=== PATIENT | female | born 1955 | race Caucasian/White ===

== ENCOUNTER → 2016-09-17 | Outpatient (CLI) | payer MEDICARE ==
--- NOTE | 2016-09-17 13:47 | US ---
EXAMINATION TYPE: US venous doppler duplex LE LT DATE OF EXAM: 09/17/2016 1:36 PM COMPARISON: NONE CLINICAL HISTORY: left lower leg skin redness and swelling x 6 days, prior PE per patient. SIDE PERFORMED: left VESSELS IMAGED: Common Femoral Vein Deep Femoral Vein Greater Saphenous Vein * Femoral Vein Popliteal Vein Small Saphenous Vein * Proximal Calf Veins (* superficial vessels) There is normal compressibility and spontaneous flow. IMPRESSION: 1. No evidence of DVT as visualized. 2. Incidental note made of lymph nodes within the left inguinal canal. Correlate for adenopathy. Larg est has a short axis measurement of 1.2 cm.
== END | disposition home or self-care (01) ==
LOC: RADUSWWP 12:46
PROVIDERS: ATTEND Family Medicine
DX: I82.402 Acute embolism and thrombosis of unspecified deep veins of left lower extremity (principal)

== ENCOUNTER → 2017-08-05 | Day surgery (SDC) | payer MEDICARE ==
[2017-08-05 07:28] VITALS: RESP 16; BMI 36.6
[2017-08-05 08:45] VITALS: BP 110/67; PULSE 74; TEMP 97.7
--- NOTE | 2017-08-05 09:06 | USB ---
EXAMINATION TYPE: US biopsy breast VAD LT, Postbiopsy diagnostic mammo LT wo CAD DATE OF EXAM: 08/05/2017 CLINICAL HISTORY: 62-year-old female abnormal screening referred for ultrasound- guided left breast biopsy. TECHNIQUE: Ultrasound guided core biopsy of the left breast. COMPARISON: 07/15/2017, 07/12/2017 FINDINGS: The procedure of ultrasound guided core biopsy was explained to the patient. Benefits, alternatives, and risks were discussed. An informed consent was then obtained. Ultrasound was used to localize the 5 mm hypoechoic lesion. Some posterior through transmission is present. The patient was placed in supine positioning for imaging and for the procedure. The overlying skin was prepped and draped in usual sterile fashion. Lidocaine was used as anesthetic into the skin and subcutaneous tissue up to area of concern in the left breast. Under ultrasound guidance, a 13-gauge vacuum assisted Mammotome Elite biopsy gun device was used to obtain 3 core samples. Following this, a biopsy clip was left in lesion. Post biopsy mammogram shows ribbon clip at the 10:00 position at the site of the mammographic abnormality. The patient tolerated the procedure well without any immediate complication. The patient was kept in the radiology department for short stay after the procedure and then discharged home in stable condition. IMPRESSION: Successful, uncomplicated ultrasound guided core biopsy of area of concern in the 10:00 left breast. A complicated cyst is suspected but mucinous/medullary neoplasm should be excluded. Full pathology results to follow. Pathology Results: High Risk BREAST, LEFT, 10:00, BIOPSY: FRAGMENTS OF INTRADUCTAL PAPILLOMA, CANNOT EXCLUDE FOCAL ATYPIA. FIBROCYSTIC CHANGES INCLUDING CYSTS, APOCRINE METAPLASIA AND FIBROSIS. Recommendation Surgical consult of the left breast. EMMANUEL
== END ==
LOC: RADMAMWWP 06:56
PROVIDERS: ATTEND Surgery
DX: D24.2 Benign neoplasm of left breast (principal); N60.82 Other benign mammary dysplasias of left breast; N60.32 Fibrosclerosis of left breast
CPT/HCPCS: 88305; 19083; G0206; A4648; J2001

== ENCOUNTER 2018-04-04 09:14 | Day surgery (SDC) | payer MEDICARE ==
[~2018-04-04 09:14] MED LIST: LACTATED RINGERS 1,000 ML IV SCH; LIDOCAINE 1% 20 ML VIAL (10MG/ML) FOR IV START INTRADERMA PRN
[2018-04-04 09:30] VITALS: TEMP 98
[2018-04-04] MEDS ORDERED: LACTATED RINGERS 1,000 ML IV ONE (09:30)
[2018-04-04] MEDS ORDERED: PROPOFOL 10 MG/ML 20 ML VIAL IV ONE (10:06)
--- NOTE | 2018-04-04 10:10 | P.GSHP ---
History of Present Illness H&P Date: 04/04/18 Chief Complaint: History of colon polyps Cyst 63-year-old female who presents today for colonoscopy. Patient history of colon polyps. She's had a previous colon resection several years ago. Past Medical History Past Medical History: Coronary Artery Disease (CAD), Cancer, Hypertension, Osteoarthritis (OA), Pulmonary Embolus (PE), Thyroid Disorder Additional Past Medical History / Comment(s): skin cancer History of Any Multi-Drug Resistant Organisms: None Reported Past Surgical History: Bowel Resection, Cholecystectomy, Heart Catheterization, Hernia Repair, Tonsillectomy Additional Past Surgical History / Comment(s): skin cancer surgery. PRE- CANCEROUS COLON POLYPS.Benign mole removal, Past Anesthesia/Blood Transfusion Reactions: No Reported Reaction Past Psychological History: Anxiety, Bipolar, Depression Smoking Status: Former smoker Past Alcohol Use History: None Reported Additional Past Alcohol Use History / Comment(s): Quit smoking 2007, 2PPD Past Drug Use History: Marijuana Additional Drug Use History / Comment(s): marijuana use many years ago Medications and Allergies Home Medications Medication Instructions Recorded Confirmed Type Aspirin 325 mg PO HS 07/28/17 03/29/18 History Butalb/APAP/Caff 50-325-40Mg 1 each PO DAILY PRN 07/28/17 03/29/18 History [Fioricet 50-325-40] Cholecalciferol (Vitamin D3) 2,000 unit PO QAM 07/28/17 03/29/18 History [Vitamin D3] Cholestyramine/Aspartame 1 each PO HS 07/28/17 03/29/18 History [Cholestyramine Light Packet] Diazepam [Valium] 2 each PO HS PRN 07/28/17 03/29/18 History Dicyclomine [Bentyl] 20 mg PO DAILY PRN 07/28/17 03/29/18 History Isosorbide Mononitrate [Monoket] 10 each PO HS 07/28/17 03/29/18 History Levothyroxine Sodium [Synthroid] 175 mcg PO QAM 07/28/17 03/29/18 History [place] Carbonate 300 mg PO BID 07/28/17 03/29/18 History NIFEdipine [NIFEdipine ER] 30 mg PO QAM 07/28/17 03/29/18 History Nitroglycerin Sl Tabs [Nitrostat] 1 each SUBLINGUAL DAILY PRN 07/28/17 03/29/18 History Venlafaxine HCl ER [Effexor Xr] 75 mg PO QAM 07/28/17 03/29/18 History buPROPion XL [Wellbutrin XL] 300 mg PO QAM 07/28/17 03/29/18 History buPROPion XL [Wellbutrin Xl] 150 mg PO HS 07/29/17 03/29/18 History Topiramate [Topamax] 100 mg PO QAM 03/29/18 03/29/18 History Topiramate [Topamax] 200 mg PO QAM 03/29/18 03/29/18 History Allergies Allergy/AdvReac Type Severity Reaction Status Date / Time No Known Allergies Allergy Verified 03/29/18 13:21 Surgical - Exam Vital Signs Temp Pulse Resp BP Pulse Ox 98.0 F 80 18 140/84 96 04/04/18 09:29 04/04/18 09:29 04/04/18 09:29 04/04/18 09:29 04/04/18 09:29 - General well developed, no distress - Eyes PERRL - ENT normal pinna - Neck no masses - Respiratory normal expansion - Cardiovascular Rhythm: regular - Abdomen Abdomen: non tender Assessment and Plan Assessment: History of colon polyps. We'll perform colonoscopy.
--- NOTE | 2018-04-04 10:31 | P.OP ---
Date of Procedure: 04/04/18 Preoperative Diagnosis: History of colon polyps Postoperative Diagnosis: Transverse colon polyp Procedure(s) Performed: Colonoscopy Anesthesia: MAC Surgeon: Joel Bhatt Pathology: other (Gastric colon polyp) Condition: stable Disposition: PACU Description of Procedure: The patient's placed on the endoscopy table in the lateral position. She received IV sedation. Digital rectal exam was performed which revealed no abnormalities. The flexible colonoscope then placed patient anus passed rotator entire colon. The ileocolonic anastomosis visualized. The remaining ascending colon appeared normal. And the transverse colon there was a small sessile polyp this removed with the snare. Scope was withdrawn remainder of the transverse colon and descending colon appeared normal. There was a few scattered diverticula. The scope was then brought back the rectum this appeared normal. Scope was withdrawn for patient.
[2018-04-04 11:08] VITALS: BP 106/66; PULSE 75; RESP 16
== END 2018-04-04 11:34 | disposition home or self-care (01) ==
LOC: ORWHC2ENDO 09:14
PROVIDERS: ATTEND Surgery
DX: K63.5 Polyp of colon (principal); K57.30 Diverticulosis of large intestine without perforation or abscess without bleeding; I10 Essential (primary) hypertension; I25.10 Atherosclerotic heart disease of native coronary artery without angina pectoris; K44.9 Diaphragmatic hernia without obstruction or gangrene; M19.90 Unspecified osteoarthritis, unspecified site; Z79.82 Long term (current) use of aspirin; Z85.038 Personal history of other malignant neoplasm of large intestine; Z86.010 Personal history of colon polyps; Z86.711 Personal history of pulmonary embolism; Z87.891 Personal history of nicotine dependence; Z85.828 Personal history of other malignant neoplasm of skin; F41.9 Anxiety disorder, unspecified; F31.9 Bipolar disorder, unspecified; Z79.899 Other long term (current) drug therapy; Z90.49 Acquired absence of other specified parts of digestive tract; Z98.0 Intestinal bypass and anastomosis status
CPT/HCPCS: 88305; 45385; J2704

== ENCOUNTER → 2018-08-16 | Outpatient (CLI) | payer MEDICARE ==
--- NOTE | 2018-08-17 14:04 | MM ---
Reason for exam: screening (asymptomatic). Last mammogram was performed 1 year ago. History: Patient is postmenopausal, has history of high-risk lesion on a previous biopsy at age 62, and history of other cancer. Excisional biopsy of the left breast, September 2017. High risk US biopsy breast VAD LT of the left breast, August 05, 2017. Benign left mammotome panel of the left breast, April 17, 2012. Physical Findings: A clinical breast exam by your physician is recommended on an annual basis and results should be correlated with mammographic findings. MG 3D Screening Mammo W/Cad Bilateral CC and MLO view(s) were taken. Prior study comparison: August 05, 2017, left breast MG diagnostic mammo LT wo CAD. July 12, 2017, bilateral MG 3d screening mammo w/cad. There are scattered fibroglandular densities. No suspicious abnormality. No significant changes when compared with prior studies. ASSESSMENT: Negative, BI-RAD 1 RECOMMENDATION: Routine screening mammogram of both breasts in 1 year.
== END | disposition home or self-care (01) ==
LOC: RADMAMWWP 16:04
PROVIDERS: ATTEND Family Medicine
DX: Z12.31 Encounter for screening mammogram for malignant neoplasm of breast (principal)
CPT/HCPCS: 77063; 77067

== ENCOUNTER → 2019-10-16 | Outpatient (CLI) | payer MEDICARE ==
--- NOTE | 2019-10-17 11:52 | MM ---
Reason for exam: screening (asymptomatic). Last mammogram was performed 1 year and 2 months ago. History: Patient is postmenopausal, has history of high-risk lesion on a previous biopsy at age 62, and history of other cancer. Excisional biopsy of the left breast, September 2017. High risk US biopsy breast VAD LT of the left breast, August 05, 2017. Benign left mammotome panel of the left breast, April 17, 2012. Took hormonal contraceptives for 4 years. Physical Findings: A clinical breast exam by your physician is recommended on an annual basis and results should be correlated with mammographic findings. MG 3D Screening Mammo W/Cad Bilateral CC and MLO view(s) were taken. Prior study comparison: August 16, 2018, bilateral MG 3d screening mammo w/cad. August 05, 2017, left breast MG diagnostic mammo LT wo CAD. There are scattered fibroglandular densities. There is no discrete abnormality. Left biopsy marker noted. No significant changes when compared with prior studies. ASSESSMENT: Negative, BI-RAD 1 RECOMMENDATION: Routine screening mammogram of both breasts in 1 year.
== END | disposition home or self-care (01) ==
LOC: RADMAMWWP 10:46
PROVIDERS: ATTEND Family Medicine
DX: Z12.31 Encounter for screening mammogram for malignant neoplasm of breast (principal)
CPT/HCPCS: 77063; 77067

== ENCOUNTER → 2020-10-29 | Outpatient (CLI) | payer MEDICARE ==
--- NOTE | 2020-10-30 12:07 | MM ---
Reason for exam: screening (asymptomatic). Last mammogram was performed 1 year ago. History: Patient is postmenopausal, has history of high-risk lesion on a previous biopsy at age 62, and history of other cancer. Excisional biopsy of the left breast, September 2017. High risk US biopsy breast VAD LT of the left breast, August 05, 2017. Benign left mammotome panel of the left breast, April 17, 2012. Took hormonal contraceptives for 4 years. Physical Findings: A clinical breast exam by your physician is recommended on an annual basis and results should be correlated with mammographic findings. MG 3D Screening Mammo W/Cad Bilateral CC, MLO, and XCCL view(s) were taken. Prior study comparison: October 16, 2019, bilateral MG 3d screening mammo w/cad. August 16, 2018, bilateral MG 3d screening mammo w/cad. There are scattered fibroglandular densities. There is no discrete abnormality. No significant changes when compared with prior studies. ASSESSMENT: Negative, BI-RAD 1 RECOMMENDATION: Routine screening mammogram of both breasts in 1 year.
== END | disposition home or self-care (01) ==
LOC: RADMAMWWP 11:47
PROVIDERS: ATTEND Family Medicine
DX: Z12.31 Encounter for screening mammogram for malignant neoplasm of breast (principal)
CPT/HCPCS: 77063; 77067

== ENCOUNTER 2021-11-19 09:10 | Day surgery (SDC) | payer MEDICARE ==
[2021-11-17 14:43] VITALS: BMI 32.9
[~2021-11-19 09:10] MED LIST changes: -LIDOCAINE 1% 20 ML VIAL (10MG/ML) FOR IV START INTRADERMA PRN
[2021-11-19 09:50] VITALS: RESP 18; TEMP 98.7
[2021-11-19] MEDS ORDERED: LIDOCAINE 1% (10MG/ML) FOR IV START INTRADERMA ONE (09:56)
[2021-11-19] MEDS ORDERED: PROPOFOL 10 MG/ML 20 ML VIAL IV ONE (10:24)
--- NOTE | 2021-11-19 10:26 | P.GSHP ---
History of Present Illness H&P Date: 11/19/21 Chief Complaint: History of colon polyp This is a 66-year-old female presents today for colonoscopy. Patient's previous history of colon polyps Past Medical History Past Medical History: Coronary Artery Disease (CAD), Cancer, Hypertension, Osteoarthritis (OA), Pulmonary Embolus (PE), Thyroid Disorder Additional Past Medical History / Comment(s): skin cancer History of Any Multi-Drug Resistant Organisms: None Reported Past Surgical History: Bowel Resection, Cholecystectomy, Heart Catheterization, Hernia Repair, Tonsillectomy, Tubal Ligation Additional Past Surgical History / Comment(s): skin cancer surgery. PRE- CANCEROUS COLON POLYPS. Past Anesthesia/Blood Transfusion Reactions: No Reported Reaction Past Psychological History: Anxiety, Bipolar, Depression Smoking Status: Former smoker Past Alcohol Use History: None Reported Past Drug Use History: None Reported Medications and Allergies Home Medications Medication Instructions Recorded Confirmed Type Aspirin 325 mg PO 07/28/17 11/19/21 History Cholecalciferol (Vitamin D3) 2,000 unit PO QA 07/28/17 11/19/21 History [Vitamin D3] Cholestyramine/Aspartame 1 each PO 07/28/17 11/19/21 History [Cholestyramine Light Packet] Levothyroxine Sodium [Synthroid] 175 mcg PO QA 07/28/17 11/19/21 History [place] Carbonate 300 mg PO 07/28/17 11/19/21 History NIFEdipine [NIFEdipine ER] 30 mg PO QA 07/28/17 11/19/21 History Venlafaxine HCl ER [Effexor Xr] 75 mg PO QA 07/28/17 11/19/21 History buPROPion XL [Wellbutrin XL] 300 mg PO [facility] 07/28/17 11/19/21 History Riboflavin (Vitamin B2) [Vitamin 50 mg PO Q7D 11/17/21 11/19/21 History B-2] Allergies Allergy/AdvReac Type Severity Reaction Status Date / Time No Known Allergies Allergy Verified 11/19/21 09:50 Surgical - Exam Vital Signs Temp Pulse Resp BP Pulse Ox 98.7 F 86 18 157/85 96 11/19/21 09:48 11/19/21 09:48 11/19/21 09:48 11/19/21 09:48 11/19/21 09:48 - General well developed, well nourished, no distress - Eyes PERRL - ENT normal pinna - Neck no masses - Respiratory normal expansion - Cardiovascular Rhythm: regular - Abdomen Abdomen: soft, non tender Assessment and Plan Assessment: History of colon polyps. We will perform colonoscopy.
--- NOTE | 2021-11-19 10:44 | P.OP ---
Date of Procedure: 11/19/21 Preoperative Diagnosis: History of colon polyp Postoperative Diagnosis: Transverse colon polyp Procedure(s) Performed: Colonoscopy Anesthesia: MAC Surgeon: Joel Bhatt Pathology: other (Transverse colon polyp) Condition: stable Disposition: PACU Description of Procedure: The patient's placed on the endoscopy table in the lateral position. She received IV sedation. Digital rectal exam was performed which revealed a few hemorrhoids. The flexible colonoscope was then placed patient anus and then p assed with colon. As the colonoscope approach the hepatic flexure. The patient started having dry heaves and retching. She was unable to contain insufflation the colon due to this. At this point the scope was withdrawn. In the transverse colon there was a small polyp seen. This is removed with cold forcep. The remainder of the transverse colon descending colon and sigmoid colon appeared normal. Scope was brought back the rectum and this appeared normal. Scope was withdrawn for patient.
[2021-11-19 11:11] VITALS: BP 151/83; PULSE 79
== END 2021-11-19 11:39 | disposition home or self-care (01) ==
LOC: ORWHC2ENDO 09:10
PROVIDERS: ATTEND Surgery
DX: K63.5 Polyp of colon (principal); Z86.010 Personal history of colon polyps; I25.10 Atherosclerotic heart disease of native coronary artery without angina pectoris; M19.90 Unspecified osteoarthritis, unspecified site; Z86.718 Personal history of other venous thrombosis and embolism; E07.9 Disorder of thyroid, unspecified; Z85.828 Personal history of other malignant neoplasm of skin; Z90.49 Acquired absence of other specified parts of digestive tract; Z98.51 Tubal ligation status; F41.9 Anxiety disorder, unspecified; F31.9 Bipolar disorder, unspecified; Z87.891 Personal history of nicotine dependence; Z79.82 Long term (current) use of aspirin; Z79.890 Hormone replacement therapy; Z79.899 Other long term (current) drug therapy
CPT/HCPCS: 88305; 45380; J2704

== ENCOUNTER → 2022-03-26 | Outpatient (CLI) | payer MEDICARE ==
--- NOTE | 2022-03-26 19:41 | MR ---
EXAMINATION TYPE: MR brain wo/w con DATE OF EXAM: 03/26/2022 7:29 PM COMPARISON: NONE HISTORY: Headaches, mood changes CONTRAST: Patient received 8.5 mL intravenous Gadavist gadolinium contrast. Multiplanar and multispin-echo imaging of the brain was performed . Pre and post contrast enhanced i mages are obtained. The ventricles, basal cisterns and sulci overlying the cerebral convexities are mildly enlarged. There is evidence of mild to moderate periventricular white matter ischemic demyelination. Remote deep white matter insults are also noted. No acute edema is seen on diffusion weighted imaging. There is no evidence for midline shift or mass effect. Acute intracranial hemorrhage or extra-axial collection is not evident. No enhancing lesions are seen. The paranasal sinuses and mastoid air cells are well-aerated. IMPRESSION: Age-related atrophic and chronic small vessel ischemic change. No acute intracranial process at this time. No enhancing lesions are seen.
== END | disposition home or self-care (01) ==
LOC: RADMRIMAIN 18:12
PROVIDERS: ATTEND Family Medicine
DX: G31.9 Degenerative disease of nervous system, unspecified (principal); R44.1 Visual hallucinations; I67.82 Cerebral ischemia
CPT/HCPCS: 70553; A9585

== ENCOUNTER → 2022-07-08 | Outpatient (CLI) | payer MEDICARE ==
--- NOTE | 2022-07-08 16:10 | P.SLEEP ---
History of Present Illness DATE: [] CONSULTATION/NEW PATIENT EVALUATION HISTORY OF PRESENT ILLNESS/SLEEP-WAKE EVALUATION: 67year old lady had been evaluated in the sleep center for possible obstructive sleep apnea hypopnea syndrome and significant excessive daytime sleepiness. SLEEP SCHEDULE: Usually sleep schedule on weekdays from 1011 PM until 4 AM. 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 FALLING ASLEEP: Patient has problems with the falling asleep, although no TV in bedroom. DURING SLEEP: Patient snores and wakes up from sleep 3 times during the night with nocturia. No history of hypnogogical hallucinations, sleep paralysis, or cataplexy. DURING THE DAY/WAKE STATE: In the morning patient wake up tired, has difficulties to pay attention, falling asleep during the day, has problems with memory, concentration, irritability, depression and anxiety. [place] sleepiness scale is significantly increased to 13. Patient may take up to 2 naps during the day. PAST MEDICAL HISTORY: Hypertension, hypothyroidism, headaches, bipolar, depression, COPD. PAST SURGICAL HISTORY: Hiatal hernia repair, skin cancer treatment, tonsillectomy, small part of colon resection for precancerous condition. MEDICATIONS: Levothyroxine 150 g once a day, nifedipine extended release 30 mg once a day, venlafaxine 75 mg twice a day, bupropion 150 mg once a day, lithium 300 mg 3 times a day, aspirin 81 mg once a day, cholestyramine. SOCIAL HISTORY: Positive history of smoking for more than 30 pack years, quit in 2007, alcohol consumption none. FAMILY HISTORY: Stroke, diabetes. REVIEW OF SYSTEMS: Snoring, multiple awakenings from sleep, sleepiness during the day. No fevers. No double vision. No recent chest pain. No shortness of breath. No abdominal pain. No bleeding episodes. No blood in urine. No seizure episodes. PHYSICAL EXAMINATION: GENERAL: A pleasant patient without any distress. VITAL SIGNS: BP 140/76 , HR 74 , RR 16 , weight 204 pounds, height 5 foot 2 inches, body mass index 37.3 . HEENT: PERRLA, EOMI. Evaluation of oropharynx showed tongue protrudes midline, low position of soft palate Mallampati 4. NECK: Supple. No JVD. Thyroid is not palpable. 16 inches in circumference. LUNGS: Clear to percussion and to auscultation. Good air exchange. No wheezing or rhonchi. HEART: S1, S2 regular. No murmurs, gallops or rubs. ABDOMEN: Soft and nontender. Bowel sounds are present. No organomegaly appreciated. EXTREMITIES: No clubbing or cyanosis. [employer] SCHEDULER: Awake, alert, and oriented x3. Cranial nerves 2 to 7 intact. There is no fasciculation or atrophy noted. No focal deficits observed. ASSESSMENT: 1. Snoring, multiple awakenings from sleep, extremely low position of soft palate Mallampati 4, white neck 16 inches in circumference, significant excessive daytime sleepiness [place] Sleepiness Scale increased to 13. Obstructive sleep apnea hypopnea syndrome. 2. Obesity body mass index 37.3. 3 hypertension. 4. Hypothyroidism. 5 headaches. 6. Bipolar. 7. Depression. 8. COPD. 9. Status post hiatal hernia repair. 10. Status post the surgical treatment for skin cancer of the face. 11. Status small post small part of colon resection for precancerous condition. 12 status post tonsillectomy. 13[]. PLAN: 1. Polysomnography for evaluation of patient's breathing during sleep with the multiple sleep latency test if polysomnogram will not show any abnormalities of respiration. 2. CPAP/BiPAP titration if sleep study confirms obstructive sleep apnea- hypopnea syndrome. 3. Preferable position during sleep on the side. 4. No driving if patient feels any sleepiness. Patient is aware of civil and criminal liability for unsafe driving. 5. Sleep hygiene with regular sleep time for at least 7.5-8 hours. 6. Watching and losing weight. Thank you very much for referring this patient for consultation. Sincerely, Yobani Nogueira MD, PhD, FAASM. Diplomat of [place] [employer], Sleep Medicine Board by [place] [employer] [place] [employer] [facility] [place] Past Medical History Past Medical History: Coronary Artery Disease (CAD), Cancer, Hypertension, Osteoarthritis (OA), Pulmonary Embolus (PE), Thyroid Disorder Additional Past Medical History / Comment(s): skin cancer History of Any Multi-Drug Resistant Organisms: None Reported Past Surgical History: Bowel Resection, Cholecystectomy, Heart Catheterization, Hernia Repair, Tonsillectomy, Tubal Ligation Additional Past Surgical History / Comment(s): skin cancer surgery. PRE- CANCEROUS COLON POLYPS. Past Anesthesia/Blood Transfusion Reactions: No Reported Reaction Past Psychological History: Anxiety, Bipolar, Depression Smoking Status: Former smoker Past Alcohol Use History: None Reported Past Drug Use History: None Reported Medications and Allergies Home Medications Medication Instructions Recorded Confirmed Type Aspirin 325 mg PO HS 07/28/17 11/19/21 History Cholecalciferol (Vitamin D3) 2,000 unit PO QAM 07/28/17 11/19/21 History [Vitamin D3] Cholestyramine/Aspartame 1 each PO HS 07/28/17 11/19/21 History [Cholestyramine Light Packet] Levothyroxine Sodium [Synthroid] 175 mcg PO QAM 07/28/17 11/19/21 History [place] Carbonate 300 mg PO HS 07/28/17 11/19/21 History NIFEdipine [NIFEdipine ER] 30 mg PO QAM 07/28/17 11/19/21 History Venlafaxine HCl ER [Effexor Xr] 75 mg PO QAM 07/28/17 11/19/21 History buPROPion XL [Wellbutrin XL] 300 mg PO QAM 07/28/17 11/19/21 History Riboflavin (Vitamin B2) [Vitamin 50 mg PO Q7D 11/17/21 11/19/21 History B-2] Allergies Allergy/AdvReac Type Severity Reaction Status Date / Time No Known Allergies Allergy Verified 11/19/21 09:50 Sleep Note - Sleep Note Sleep Note: Temperature: Pulse Rate: Respiratory Rate: Blood Pressure: SpO2: Height: Weight: BMI: Neck Circumference:
== END ==
LOC: SLEEP 14:25
PROVIDERS: ATTEND Internal Medicine
DX: G47.33 Obstructive sleep apnea (adult) (pediatric) (principal); E66.9 Obesity, unspecified; Z68.37 Body mass index [BMI] 37.0-37.9, adult; I10 Essential (primary) hypertension; E03.9 Hypothyroidism, unspecified; R51.9 Headache, unspecified; J44.9 Chronic obstructive pulmonary disease, unspecified; F32.A Depression, unspecified; Z98.890 Other specified postprocedural states; Z87.891 Personal history of nicotine dependence; Z90.89 Acquired absence of other organs
CPT/HCPCS: 99211

== ENCOUNTER → 2022-09-23 | Outpatient (CLI) | payer MEDICARE ==
--- NOTE | 2022-09-24 07:32 | NM ---
EXAMINATION TYPE: NM parathyroid w/spect DATE OF EXAM: 09/23/2022 COMPARISON: NONE HISTORY: G43.109 migraine w/aura , shakiness, achiness, decreased energy levels, increased irritabili ty. TECHNIQUE: Following administration of 24.3 mCi Tc99m Sestamibi. Anterior projection images of the neck and ches t were obtained 10 minutes and 3 hours post injection. SPECT images of the neck and chest were obtai tere and reconstructed in three axes. FINDINGS: Thyroid tracer washout: Delayed images demonstrate near-complete tracer washout from the thyroid. Parathyroid uptake: None. The two-hour delayed images do not demonstrate any focal abnormal persisten t uptake in the region of the parathyroid glands to suggest parathyroid adenoma. Normal uptake: There is physiological tracer uptake in the myocardium, liver, salivary glands, and th yroid gland. IMPRESSION: Normal parathyroid imaging study. No evidence for mediastinal uptake to suggest mediastinal parathyro id adenoma
== END | disposition home or self-care (01) ==
LOC: RADNMMAIN 10:42
PROVIDERS: ATTEND Family Medicine
DX: G43.109 Migraine with aura, not intractable, without status migrainosus (principal); E83.52 Hypercalcemia; F03.90 Unspecified dementia, unspecified severity, without behavioral disturbance, psychotic disturbance, mood disturbance, and anxiety
CPT/HCPCS: 78071; A9500

== ENCOUNTER → 2022-10-06 | Outpatient (CLI) | payer MEDICARE ==
[~2022-10-06] MED LIST changes: +IODINE/POTASSIUM IODIDE 14 ML BOTTLE ONE; -LACTATED RINGERS 1,000 ML IV SCH
--- NOTE | 2022-10-06 16:08 | NM ---
EXAMINATION TYPE: NM DatScan Brain SPECT DATE OF EXAM: 10/06/2022 COMPARISON: NONE HISTORY: Dementia TECHNIQUE: 10 drops of Lugol's solution was administered 1 hour prior to injection as a thyroid bloc jeane agent. After the administration of 4.5 mCi I-123 Ioflupane DaTscan. Images obtained [address] injection. SPECT images of the brain were acquired with axial and coronal reconstructions. FINDINGS: The uptake of radiotracer within the patient's caudate nuclei and putamina is symmetric and crescent- shaped. IMPRESSION: There is no scintigraphic evidence of a neurodegenerative disorder (Parkinson's disease, Multisystem atrophy or Progressive supranuclear palsy), as there is symmetric uptake of I-123 Ioflupan (DaTscan) within the caudate nuclei and putamina.
== END | disposition home or self-care (01) ==
LOC: RADNMMAIN 10:49
PROVIDERS: ATTEND Family Medicine
DX: G20 Parkinson's disease (principal); F03.90 Unspecified dementia, unspecified severity, without behavioral disturbance, psychotic disturbance, mood disturbance, and anxiety; R44.3 Hallucinations, unspecified
CPT/HCPCS: 78803; A9584

== ENCOUNTER → 2023-03-02 | Outpatient (CLI) | payer MEDICARE ==
--- NOTE | 2023-03-02 12:18 | P.PN ---
Subjective DATE: 03/02/2023 FOLLOW UP VISIT. Patient with obstructive sleep apnea hypopnea syndrome return to sleep center for follow-up visit. Recently patient had sleep study which documented obstructive sleep apnea hypopnea syndrome. Patient was initiated on PAP therapy and today is first visit after treatment was started. I discuss results of sleep studies with patient and family in details. Patient was able to use PAP equipment every night for the whole night. Patient still feels sleepiness during the day. The patient does not have significant problems with the mask, PAP pressure and humidification. [place] sleepiness scale is 14. I checked information from PAP unit. PAP unit pressure 5-9, average 8.7 cm H2O. Usage is 100% and 77 % for more then 4 hours, average 5 hours per night. Leak is 5.0 l/m, which is in acceptable range. Apnea Hypopnea Index is 0.5, which is normal. During polysomnogram extremely severe periodic limb movements have been documented 108.1 per hour with 6.9 micro-arousals per hour, which also could be the reason for sleepiness during the day. MEDICATIONS:1. Levothyroxine 150 g once a day 2. Nifedipine 30 mg once a day 3. Bupropion 150 mg once a day 4. [place] 300 mg 3 times a day 5. Aspirin 81 mg once a day 6. [] 7. [] 8. [] During physical exam: GENERAL: A pleasant patient without any distress. VITAL SIGNS: BP 133/76, HR 70, RR 12, weight 210.8, temperature 97.6, oxygen saturation at room air 97%. HEENT: PERRLA, EOMI.low position of soft palate, Mallapati 4 . NECK: Supple. No JVD. LUNGS: Clear to percussion and to auscultation. Good air exchange. No wheezing or rhonchi. HEART: S1, S2 regular. ABDOMEN: Soft and nontender.[] EXTREMITIES: No clubbing or cyanosis. NAIL FEEDER: Awake, alert, and oriented x3. No focal deficit. Impressions: 1. Obstructive sleep apnea-hypopnea syndrome. Patient demonstrated great compliance with treatment, benefiting from treatment. 2. Severe periodic limb movements 108.1 per hour with 6.9 micro-arousals per hour, which could be the reason for sleepiness during the day. 3. Obesity. 4. Hypertension. 5. Hypothyroidism. 6. Bipolar. 7. Depression. 8. History of COPD. 9. History of headaches. Plan: 1. Continue using PAP equipment every night for the whole night. 2. We will try smallest dose of dopaminergic agonists for periodic limb movements, 3. PAP unit should stay lower then position of the head. 4. Advised patient to remove all remaining water from humidifier canister daily and make it dry after each usage. Refill canister with fresh distilled water before each usage. 5. Sleep hygiene with regular time in bed for at least 8 hours. 6. Precautions related to driving. No driving if feel any sleepiness. 7. I will maintain prescription for PAP supplies including mask, tube, filters. 8. Follow up visit in 3-4 months or earlier if patient has any problems. 9. Watching and losing weight. Thank you very much for allowing me to participate in the management of your patient. Yobani Nogueira MD, PhD, FAASM. Diplomat of [place] [employer], Sleep Medicine Board by [place] [employer] Manager [employer] [facility] [place]
== END ==
LOC: 3 N SLEEP 11:40
PROVIDERS: ATTEND Internal Medicine
DX: G47.33 Obstructive sleep apnea (adult) (pediatric) (principal); E66.9 Obesity, unspecified; I10 Essential (primary) hypertension; E03.9 Hypothyroidism, unspecified; F31.9 Bipolar disorder, unspecified; G47.61 Periodic limb movement disorder; J44.9 Chronic obstructive pulmonary disease, unspecified; R51.9 Headache, unspecified; Z99.89 Dependence on other enabling machines and devices; Z79.890 Hormone replacement therapy; Z87.891 Personal history of nicotine dependence
CPT/HCPCS: 99212

== ENCOUNTER → 2023-05-19 | Outpatient (CLI) | payer MEDICARE ==
--- NOTE | 2023-05-19 16:02 | XR ---
EXAMINATION TYPE: XR cervical spine 5 views comp, XR lumbar spine 3V, XR Hip Complete 2 views RT DATE OF EXAM: 05/19/2023 COMPARISON: None HISTORY: 68-year-old female [id number], [id number], PAIN FINDINGS: Cervical spine: Hypertrophic facet and uncovertebral joint arthropathy throughout. Changes result in variable moderat e bony neuroforaminal narrowing throughout, right greater than left. Possible severe narrowing C6-C7 right greater than left and also on the left at C7-T1. No odontoid view. No prevertebral soft tissue swelling or predental space widening. Moderate disc/endplate degenerative change C5-C7 levels. Degene rative grade 1 anterolisthesis C3-C4 and C4-C5. Trace grade 1 retrolisthesis C5-C6. Lumbar spine: Hypertrophic facet arthropathy mid to lower lumbar spine. Moderate degenerative disc disease L5-S1. M ild degenerative disc disease elsewhere in the lumbar spine. Vertebral body heights are preserved and alignment is maintained. Atherosclerotic calcifications abdominal aorta and iliac arteries. Right hip: Mild degenerative spurring and mild axial joint space narrowing at the right hip. No acute fracture, subluxation, or dislocation. IMPRESSION: Cervical spine: 1. Moderate to advanced multilevel facet and uncovertebral joint arthropathy. Moderate disc/endplate degenerative change C5-C7 levels. 2. Degenerative grade 1 spondylolisthesis C3-C4, C4-C5, and C5-C6. 3. Moderate multilevel bony neuroforaminal stenoses. Suspect severe right greater than left at C6-C7 and on the left at C7-T1. Lumbar spine: 4. Moderate degenerative disc disease L5-S1. Mild elsewhere in the lumbar spine. 5. Hypertrophic facet arthropathy mid to lower lumbar spine. 6. No vertebral compression collapse or malalignment. Right hip: 7. Mild right hip OA. 8. No acute osseous abnormality seen.
== END | disposition home or self-care (01) ==
LOC: RADXRMAIN 15:06
PROVIDERS: ATTEND Nurse Practitioner
DX: M47.812 Spondylosis without myelopathy or radiculopathy, cervical region (principal); M51.36 Other intervertebral disc degeneration, lumbar region; M51.37 Other intervertebral disc degeneration, lumbosacral region; M50.31 Other cervical disc degeneration, high cervical region; M43.12 Spondylolisthesis, cervical region; M99.72 Connective tissue and disc stenosis of intervertebral foramina of thoracic region; M16.11 Unilateral primary osteoarthritis, right hip; M47.816 Spondylosis without myelopathy or radiculopathy, lumbar region
CPT/HCPCS: 72050; 72100; 73502

== ENCOUNTER → 2023-08-03 | Outpatient (CLI) | payer MEDICARE ==
--- NOTE | 2023-08-03 18:16 | P.PN ---
Subjective DATE: 08/03/2023 FOLLOW UP VISIT. Patient with obstructive sleep apnea hypopnea syndrome return to sleep center for follow-up visit. Information from previous visit have been reviewed. Patient is using PAP equipment every night for the whole night, getting PAP supplies in time. The patient does not have significant problems with the mask, PAP unit and humidification. [place] sleepiness scale is significantly increased to 19. I checked information from PAP unit. PAP unit pressure 5-9, average 8.7 cm H2O. Usage is 87% and 57 % for more then 4 hours, average 4 hours per night. Leak is 6.7 l/m, which is in acceptable range. Apnea Hypopnea Index is 1.3, which is normal. MEDICATIONS:1. Nifedipine 2. Levothyroxine 3. Aspirin 81 mg once a day 4. [place] 5. Bupropion During physical exam: GENERAL: A pleasant patient without any distress. VITAL SIGNS: BP 163/69, HR 70, RR 12, weight 110.6, temperature 98.1, oxygen saturation at room air 97 % . HEENT: PERRLA, EOMI.low position of soft palate, Mallapati 4 . NECK: Supple. No JVD. LUNGS: Clear to percussion and to auscultation. Good air exchange. No wheezing or rhonchi. HEART: S1, S2 regular. ABDOMEN: Soft and nontender.[] EXTREMITIES: No clubbing or cyanosis. GEOLOGIST PETROLEUM: Awake, alert, and oriented x3. No focal deficit. Impressions: 1. Obstructive sleep apnea-hypopnea syndrome. Patient demonstrated good compliance with treatment, benefiting from treatment. 2. History of severe periodic limb movements. 3. Hypertension. 4. Obesity. 5. Hypothyroidism. 6. Depression. 7. Bipolar. 8. History of COPD. 9. History of headaches. Plan: 1. Continue using PAP equipment every night for the whole night. 2. To change air filter at least 1-2 times per month. 3. PAP unit should stay lower then position of the head. 4. Advised patient to remove all remaining water from humidifier canister daily and make it dry after each usage. Refill canister with fresh distilled water before each usage. 5. Sleep hygiene with regular time in bed for at least 8 hours. 6. Precautions related to driving. No driving if feel any sleepiness. 7. I will maintain prescription for PAP supplies including mask, tube, filters. 8. Watching and losing weight. 9. Follow up visit in 6 months or earlier if patient has any problems. Thank you very much for allowing me to participate in the management of your patient. Yobani Nogueira MD, PhD, FAASM. Diplomat of [employer] Board [employer] Sleep Medicine, Sleep Medicine Board by [employer] Medicine [employer] [facility] [place]
== END ==
LOC: 3 N SLEEP 15:37
PROVIDERS: ATTEND Internal Medicine
DX: G47.33 Obstructive sleep apnea (adult) (pediatric) (principal); G47.61 Periodic limb movement disorder; I10 Essential (primary) hypertension; J44.9 Chronic obstructive pulmonary disease, unspecified; E66.9 Obesity, unspecified; E03.9 Hypothyroidism, unspecified; F31.9 Bipolar disorder, unspecified; Z86.69 Personal history of other diseases of the nervous system and sense organs; Z79.890 Hormone replacement therapy; Z79.82 Long term (current) use of aspirin; Z87.891 Personal history of nicotine dependence
CPT/HCPCS: 99212

== ENCOUNTER → 2024-03-07 | Outpatient (CLI) | payer MEDICARE ==
[2024-03-07 11:43] VITALS: BP 118/75; PULSE 60; RESP 16; TEMP 98
--- NOTE | 2024-03-07 12:31 | P.PROGSL ---
Subjective DATE: 03/07/2024 FOLLOW UP VISIT. Patient with obstructive sleep apnea hypopnea syndrome return to sleep center for follow-up visit. Information from previous visit have been reviewed. Patient is using PAP equipment every night for the whole night, getting PAP supplies in time. The patient does not have significant problems with the mask, PAP unit and humidification. [place] sleepiness scale is increased to 12. I checked information from PAP unit. PAP unit pressure 5-9, average 8.8 cm H2O. Usage is 90% for more then 4 hours, average 8.7 hours per night. Leak is 7.9 l/m, which is in acceptable range. Apnea Hypopnea Index is 2.4, which is normal. MEDICATIONS: Please see below During physical exam: GENERAL: A pleasant patient without any distress. VITAL SIGNS: Please see below, weight 181 pounds, BMI 34.1. HEENT: PERRLA, EOMI.low position of soft palate, Mallapati 4, redness in the middle of the nose below area of contact with full facemask. NECK: Supple. No JVD. LUNGS: Clear to percussion and to auscultation. Good air exchange. No wheezing or rhonchi. HEART: S1, S2 regular. ABDOMEN: Soft and nontender.[] EXTREMITIES: No clubbing or cyanosis. STRAW HAT BRUSHER: Awake, alert, and oriented x3. No focal deficit. Impressions: 1. Obstructive sleep apnea-hypopnea syndrome. Patient demonstrated good c ompliance with treatment, benefiting from treatment. 2. Redness and swelling in the middle of the nose below area of contact with full facemask. 3. History of skin cancer in the nose area more than 15 years ago. 4. Hypertension. 5. History of severe periodic limb movements. 6. Hypothyroidism. 7. Depression. 8. Bipolar. 9. History of headaches. 10. History of COPD. Plan: 1. Continue using PAP equipment every night for the whole night. Patient should try DreamWear full facemask, which goes under the nose. 2. To change air filter at least 1-2 times per month. 3. PAP unit should stay lower then position of the head. 4. Advised patient to remove all remaining water from humidifier canister daily and make it dry after each usage. Refill canister with fresh distilled water before each usage. 5. Sleep hygiene with regular time in bed for at least 8 hours. 6. Precautions related to driving. No driving if feel any sleepiness. 7. I will maintain prescription for PAP supplies including mask, tube, filters. 8. Follow up visit in 6 months or earlier if patient has any problems. 9. Watching weight. 10. Patient was recommended to discuss with primary care physician dermatology consult. Thank you very much for allowing me to participate in the management of your patient. Yobani Nogueira MD, PhD, FAASM. Diplomat of [place] [employer], Sleep Medicine Board by [employer] Scanning [facility] [place] cc: Pan Kramer DO Objective - Vital Signs Vital Signs: Vital Signs Temp 98 F 03/07/24 11:42 Pulse 60 03/07/24 11:42 Resp 16 03/07/24 11:42 BP 118/75 03/07/24 11:42 Pulse Ox 96 03/07/24 11:42 FiO2 Home Medications: Home Medications Medication Instructions Recorded Confirmed Type Aspirin 325 mg PO HS 07/28/17 11/19/21 History Cholecalciferol (Vitamin D3) 2,000 unit PO QAM 07/28/17 11/19/21 History [Vitamin D3] Cholestyramine/Aspartame 1 each PO DIRECTED PRN 07/28/17 03/07/24 History [Cholestyramine Light Packet] Levothyroxine Sodium [Synthroid] 125 mcg PO QAM 07/28/17 03/07/24 History [place] Carbonate 300 mg PO HS 07/28/17 11/19/21 History NIFEdipine [NIFEdipine ER] 30 mg PO QAM 07/28/17 03/07/24 History Venlafaxine HCl ER [Effexor Xr] 75 mg PO QAM 07/28/17 11/19/21 History buPROPion XL [Wellbutrin XL] 300 mg PO QAM 07/28/17 11/19/21 History Riboflavin (Vitamin B2) [Vitamin 50 mg PO Q7D 11/17/21 03/07/24 History B-2] Aspirin EC [Ecotrin Low Dose] 81 mg PO DAILY 03/07/24 03/07/24 History Atogepant [Qulipta] 60 mg PO DAILY 03/07/24 03/07/24 History Cariprazine HCl [Vraylar] 3 mg PO DAILY 03/07/24 03/07/24 History Ubrogepant [Ubrelvy] 100 mg PO DIRECTED PRN 03/07/24 03/07/24 History lamoTRIgine [LaMICtal ODT] 100 mg PO DAILY 03/07/24 03/07/24 History metFORMIN HCL [Metformin HCl] 500 mg PO BID 03/07/24 03/07/24 History
== END ==
LOC: 3 N SLEEP 11:17
PROVIDERS: ATTEND Internal Medicine
DX: G47.33 Obstructive sleep apnea (adult) (pediatric) (principal); I10 Essential (primary) hypertension; F31.9 Bipolar disorder, unspecified; E03.9 Hypothyroidism, unspecified; J34.89 Other specified disorders of nose and nasal sinuses; Z87.39 Personal history of other diseases of the musculoskeletal system and connective tissue; Z99.89 Dependence on other enabling machines and devices; Z85.828 Personal history of other malignant neoplasm of skin; Z86.69 Personal history of other diseases of the nervous system and sense organs; Z79.899 Other long term (current) drug therapy; Z79.890 Hormone replacement therapy; Z87.09 Personal history of other diseases of the respiratory system; Z87.891 Personal history of nicotine dependence
CPT/HCPCS: 99212

== ENCOUNTER → 2024-06-04 | Outpatient (CLI) | payer MEDICARE ==
--- NOTE | 2024-06-04 11:22 | USB ---
Reason for Exam: Additional evaluation requested from prior study. Patient History: Menarche at age 13. First Full-Term at age 25. Postmenopausal. Other cancer. Patient used Hormonal Contraceptives for 4 years. 09/2017, Excisional Biopsy on the Left side. 08/05/2017, High risk Core Biopsy on the left side. 04/17/2012, Benign Core Biopsy on the left side. Risk Values: Zulema 5 year model risk: 2.9%. NCI Lifetime model risk: 8.7%. Technique: Method: Targeted. Prior Study Comparison: 08/16/2018 Bilateral Screening Mammogram, [facility]. 10/16/2019 Bilateral Screening Mammogram, [facility]. 10/29/2020 Bilateral Screening Mammogram, [facility]. Findings: The upper outer quadrant of the left breast, the axilla of the left breast and the retroareolar of the left breast were scanned. No solid or cystic masses are identified.. No abnormality to account for previous nodule. Overall Assessment: Negative, BI-RAD 1 Management: Diagnostic Mammogram of the left breast. A clinical breast exam by your physician is recommended on an annual basis and results should be correlated with mammographic findings. This exam should not preclude additional follow-up of suspicious palpable abnormalities. Results were given to the patient verbally at the time of exam. [facility], , 06/04/2024 11:03 AM. Electronically signed and approved by: Aakash Murillo D.O. Radiologis
--- NOTE | 2024-06-04 11:56 | MM ---
Reason for Exam: Clinical finding. Last screening mammogram was performed 8 month(s) ago. Indicated Problems: Lump or thickening of the left side for 6 Month(s). Patient History: Menarche at age 13. First Full-Term at age 25. Postmenopausal. Other cancer. Patient used Hormonal Contraceptives for 4 years. 09/2017, Excisional Biopsy on the Left side. 08/05/2017, High risk Core Biopsy on the left side. 04/17/2012, Benign Core Biopsy on the left side. Risk Values: Zulema 5 year model risk: 2.9%. NCI Lifetime model risk: 8.7%. Prior Study Comparison: 08/16/2018 Bilateral Screening Mammogram, [facility]. 10/16/2019 Bilateral Screening Mammogram, [facility]. 10/29/2020 Bilateral Screening Mammogram, [facility]. Tissue Density: Left: There are scattered areas of fibroglandular density. Findings: Analyzed By CAD. Pattern appears stable. Previous nodular density within the upper outer mid left breast has resolved. Patient reports lump x6 months. There is placed upper outer left breast. No underlying mammographic abnormality. A core marker appears to be at 12:00 position left breast. No suspicious groups of microcalcifications, spiculated or lobular masses, architectural distortion or other secondary signs of malignancy are mammographically apparent. Overall Assessment: Benign, BI-RAD 2 Management: Screening Mammogram of both breasts in 4 months. A negative mammogram report should not preclude additional follow up of suspicious palpable abnormalities. Patient should continue monthly self breast exam. A clinical breast exam by your physician is recommended on an annual basis and results should be correlated with mammographic findings. Note on Zulema scores and lifetime risk: 1. A Zulema score greater than 3% is considered moderate risk. If this is the case, consider specialist referral to assess eligibility for a risk reducing agent. 2. If overall lifetime risk for the development of breast cancer is 20% or higher, the patient may qualify for future screening with alternating mammogram and breast MRI. [facility], , 06/04/2024 11:53 AM. Electronically signed and approved by: Aakash Murillo D.O. Radiologis
== END | disposition home or self-care (01) ==
LOC: RADUSWWP 10:25
PROVIDERS: ATTEND Nurse Practitioner Family
DX: N63.20 Unspecified lump in the left breast, unspecified quadrant (principal); N64.4 Mastodynia; R92.322 Mammographic fibroglandular density, left breast; Z78.0 Asymptomatic menopausal state
CPT/HCPCS: 77061; 77065

== ENCOUNTER → 2024-07-06 | Outpatient (CLI) | payer MEDICARE ==
[2024-07-06 10:20] VITALS: BP 164/76; PULSE 100; RESP 17; TEMP 97.8
--- NOTE | 2024-07-06 11:03 | P.GSCN ---
History of Present Illness Consult date: 07/06/24 Reason for Consult: mass left breast Requesting physician: Janak Ledesma History of present illness: Meme is a 69-year-old female seen in consultation regarding a left breast lump. She underwent a bilateral mammogram on 10-16-2023 which revealed in the right breast no evidence of any malignancy in the left breast there was an interval development of a round opacity involving the outer quadrant middle position. An ultrasound was recommended. This was performed on 11-22-2023. This had a benign appearing cyst in the 3 o'clock position 5 cm from the nipple measuring 4 mm. There was a well-defined homogeneous nodule identified in the outer quadrant middle position suggestive of benign etiology. Follow-up in 4 to 6 months advised to ensure stability. The patient underwent a repeat left breast mammogram and ultrasound at [facility] 06-04-2024. The mammogram revealed scattered areas of fibroglandular density. The previous nodular density in the upper outer mid left breast resolved. The patient had a left breast ultrasound performed on the same date and this revealed no solid or cystic masses of concern. No abnormality to account for previous nodule. This was considered BI-RADS 1. Personally reviewed and discussed with Dr. Mar. She states today she has no lumps masses or nodules for which she is concerned. She is not complaining of any nipple discharge or skin changes. She has not had any recent trauma or infection in the breast. She has had two left breast biopsies in the past, they were benign. It was in the operating room. She is seen in conjunction with her Zulema 5-year model risk 2.9% NCI lifetime risk 8.7% caffiene: diet pepsi 1 or 2 a day nicotine: 2 PPD for 30 years stopped in 2007 BCP: used for about 8 years, stopped when hshe had a blood clot in 1077 hormones: none Family History: none Hormonal History: menarche: 13 , breast fed: no, age at first : 25 menopause: 44 Surgical History: left breast biopsy twice partial coloectomy polyp pre cancer gallbaldder 2 skin cancers on nose removed hiatal hernia tubaligation Medical History: Biploar migrane headaches Social History: nicotine: stopped 2007 used to smoke 2 PPD alcoholL none drugs:none Review of Systems - Constitutional Denies fever, Denies weight loss - EENT Eyes: bilateral blurred vision Ears: bilateral: decreased hearing, deny: tinnitus Ears, nose, mouth and throat: Denies dysphagia - Breasts bilateral: as per HPI - Cardiovascular Denies chest pain, Denies shortness of breath - Respiratory Respiratory Comment(s): COPD - Gastrointestinal Reports as per HPI, Reports diarrhea - Genitourinary Genitourinary: Denies dysuria, Denies hematuria Menstruation: Reports postmenopausal - Musculoskeletal Reports as per HPI - Integumentary Denies rash, Denies unusual bruising - Neurological Reports headaches, Denies syncope - Psychiatric Psychiatric Comment(s): Bi-polar Reports as per HPI - Endocrine Endocrine Comment(s): borderline diabetic Reports as per HPI, Reports weight change - Hematologic/Lymphatic Denies easy bleeding, Denies easy bruising - Allergic/Immunologic Reports as per HPI Past Medical History Past Medical History: Coronary Artery Disease (CAD), Cancer, Hypertension, Osteoarthritis (OA), Pulmonary Embolus (PE), Thyroid Disorder Additional Past Medical History / Comment(s): skin cancer History of Any Multi-Drug Resistant Organisms: None Reported Past Surgical History: Bowel Resection, Cholecystectomy, Heart Catheterization, Hernia Repair, Tonsillectomy, Tubal Ligation Additional Past Surgical History / Comment(s): skin cancer surgery. PRE- CANCEROUS COLON POLYPS. Past Anesthesia/Blood Transfusion Reactions: No Reported Reaction Past Psychological History: Anxiety, Bipolar, Depression Smoking Status: Former smoker Past Alcohol Use History: None Reported Additional Past Alcohol Use History / Comment(s): Quit smoking 2007, 2PPD Past Drug Use History: None Reported Additional Drug Use History / Comment(s): marijuana use many years ago Medications and Allergies Home Medications Medication Instructions Recorded Confirmed Type Aspirin 325 mg PO HS 07/28/17 07/06/24 History Cholecalciferol (Vitamin D3) 2,000 unit PO QAM 07/28/17 07/06/24 History [Vitamin D3] Cholestyramine/Aspartame 1 each PO DIRECTED PRN 07/28/17 07/06/24 History [Cholestyramine Light Packet] Levothyroxine Sodium [Synthroid] 125 mcg PO QAM 07/28/17 07/06/24 History [place] Carbonate 300 mg PO HS 07/28/17 07/06/24 History NIFEdipine [NIFEdipine ER] 30 mg PO QAM 07/28/17 07/06/24 History Venlafaxine HCl ER [Effexor Xr] 75 mg PO QAM 07/28/17 07/06/24 History buPROPion XL [Wellbutrin XL] 300 mg PO QAM 07/28/17 07/06/24 History Riboflavin (Vitamin B2) [Vitamin 50 mg PO Q7D 11/17/21 07/06/24 History B-2] Aspirin EC [Ecotrin Low Dose] 81 mg PO DAILY 03/07/24 07/06/24 History Atogepant [Qulipta] 60 mg PO DAILY 03/07/24 07/06/24 History Cariprazine HCl [Vraylar] 3 mg PO DAILY 03/07/24 07/06/24 History Ubrogepant [Ubrelvy] 100 mg PO DIRECTED PRN 03/07/24 07/06/24 History lamoTRIgine [LaMICtal ODT] 100 mg PO DAILY 03/07/24 07/06/24 History metFORMIN HCL [Metformin HCl] 500 mg PO BID 03/07/24 07/06/24 History Allergies Allergy/AdvReac Type Severity Reaction Status Date / Time No Known Allergies Allergy Verified 07/06/24 10:16 Surgical - Exam Vital Signs Temp Pulse Resp BP Pulse Ox 97.8 F 100 17 164/76 97 07/06/24 10:18 07/06/24 10:18 07/06/24 10:18 07/06/24 10:18 07/06/24 10:18 - General no distress - Eyes normal ocular movement - Neck trachea midline - Respiratory normal respiratory effort - Cardiovascular Rhythm: regular Heart Sounds: normal: S1, S2 - Abdomen Fungal infection at umbilicus Abdomen: soft - Integumentary Fungal infection under both breast, fungal infection at umbilicus being treated with nystatin as per primary care doctor's office - Neurologic helping answer questions - Musculoskeletal normal gait - Psychiatric oriented to time, oriented to place Breast Examination: Bra: 42D Inspection: 2 ptosis Palpation: Right breast: Multi positional exam fibrocystic changes, no dominant masses or nodules of concern Right axilla: No adenopathy of concern Left breast: Multi positional exam fibrocystic changes, no dominant masses or nodules of concern, particular attention to the site of the prior complaint of a lump which there is nothing on physical exam today of concern Left axilla: No adenopathy of concern Fungal infection under both breast Results Bilateral mammogram and ultrasound of the left breast from [facility] were personally reviewed as well as most recent left breast mammogram and ultrasound from 06-04-[address] Mar and discussed, there is not felt to be anything of concern which would warrant interventional biopsy on the most recent studies. Assessment and Plan Assessment: Impression: Fibrocystic breast changes Prior left breast nodularity has resolved nothing is noted on physical examination or radiographically to warrant interventional biopsy Prior smoker/has stopped since 2007 Bipolar migraine memmory loss slight is seen with her Zulema Risk is 2.9%, we have discussed chemoprophylaxis and at this time she is not interested Plan: Lateral mammogram in October 2024 with appointment at that time Patient to follow-up sooner any questions or concerns This is discussed with the patient and her . CC: Dr. Ledesma
== END ==
LOC: WWCWWP 08:53
PROVIDERS: ATTEND Surgery

== ENCOUNTER → 2024-08-03 | Outpatient (CLI) | payer MEDICARE ==
--- NOTE | 2024-08-03 12:31 | XR ---
EXAMINATION TYPE: XR soft tissue neck DATE OF EXAM: 08/03/2024 12:06 PM COMPARISON: None. CLINICAL INDICATION: Female, 69 years old with history of R49.0 DYSPHONIA TECHNIQUE: XR soft tissue neck views were obtained FINDINGS: The airway is patent. Normal appearing epiglottis. Retropharyngeal soft tissues are within normal l imits. No evidence for radiopaque foreign body. Moderate to severe degenerative disc space narrowin g and spondylosis at C5-6 and C6-7. IMPRESSION: Negative study [facility], , 08/03/2024 12:29 PM
== END | disposition home or self-care (01) ==
LOC: RADXRMAIN 11:15
PROVIDERS: ATTEND Family Medicine
DX: R49.0 Dysphonia (principal)
CPT/HCPCS: 70360

== ENCOUNTER → 2024-11-05 | Outpatient (CLI) | payer MEDICARE ==
--- NOTE | 2024-11-05 10:12 | MM ---
Reason for Exam: Follow-up at short interval from prior study. Last mammogram was performed 1 year(s) and 1 month(s) ago. Patient History: Menarche at age 13. First Full-Term at age 25. Postmenopausal. Other cancer. Patient used Hormonal Contraceptives for 4 years. 09/2017, Excisional Biopsy on the Left side. 08/05/2017, High risk Core Biopsy on the left side. 04/17/2012, Benign Core Biopsy on the left side. Maternal aunt had breast cancer. Risk Values: Zulema 5 year model risk: 2.9%. NCI Lifetime model risk: 8.7%. Prior Study Comparison: 10/16/2019 Bilateral Screening Mammogram, [facility]. 10/29/2020 Bilateral Screening Mammogram, [facility]. 10/06/2023 Bilateral MG 3D screening mammo w/cad, Unknown. 06/04/2024 Left MG 3D diag mammo w/cad LT, [facility]. 06/04/2024 Left US breast limited LT, [facility]. Tissue Density: There are scattered areas of fibroglandular density. Findings: Analyzed By CAD. Left breast biopsy clip. No new suspicious masses, calcifications or distortions. Overall Assessment: Benign, BI-RAD 2 Management: Screening Mammogram of both breasts in 1 year. Results were given to the patient verbally at the time of exam. Patient should continue monthly self-breast exams. A clinical breast exam by your physician is recommended on an annual basis. This exam should not preclude additional follow-up of suspicious palpable abnormalities. Note on Zulema scores and lifetime risk: 1. A Zulema score greater than 3% is considered moderate risk. If this is the case, consider specialist referral to assess eligibility for a risk reducing agent. 2. If overall lifetime risk for the development of breast cancer is 20% or higher, the patient may qualify for future screening with alternating mammogram and breast MRI. [facility], , 11/05/2024 10:10 AM. Electronically signed and approved by: Nicholas Roche DO
== END | disposition home or self-care (01) ==
LOC: RADMAMWWP 09:45
PROVIDERS: ATTEND Surgery
DX: R92.8 Other abnormal and inconclusive findings on diagnostic imaging of breast (principal); R92.323 Mammographic fibroglandular density, bilateral breasts; Z78.0 Asymptomatic menopausal state; Z80.3 Family history of malignant neoplasm of breast
CPT/HCPCS: 77062; 77066

== ENCOUNTER → 2024-11-09 | Outpatient (CLI) | payer MEDICARE ==
[2024-11-09 11:20] VITALS: BP 149/75; PULSE 72; RESP 16; TEMP 97.7
--- NOTE | 2024-11-09 11:38 | P.PN ---
Subjective Progress Note Date: 11/09/24 11-09-24 Reason for Consult: mass left breast resolved Requesting physician: Janak Ledesma History of present illness: Meme is a 69-year-old female seen in consultation on 07-06-24 regarding a left breast lump. She underwent a bilateral mammogram on 10-16-2023 which revealed in the right breast no evidence of any malignancy in the left breast there was an interval development of a round opacity involving the outer quadrant middle position. An ultrasound was recommended. This was performed on 11-22-2023. This had a benign appearing cyst in the 3 o'clock position 5 cm from the nipple measuring 4 mm. There was a well-defined homogeneous nodule identified in the outer quadrant middle position suggestive of benign etiology. Follow-up in 4 to 6 months advised to ensure stability. The patient underwent a repeat left breast mammogram and ultrasound at [facility] 06-04-2024. The mammogram revealed scattered areas of fibroglandular density. The previous nodular density in the upper outer mid left breast resol kacey. The patient had a left breast ultrasound performed on the same date and this revealed no solid or cystic masses of concern. No abnormality to account for previous nodule. This was considered BI-RADS 1. Personally reviewed and discussed with Dr. Mar. She states today she has no lumps masses or nodules for which she is concerned. She is not complaining of any nipple discharge or skin changes. She has not had any recent trauma or infection in the breast. She has had two left breast biopsies in the past, they were benign. They were open biopsies in the OR. She is using ketoconozole under both breast with improvement Bilateral mammogram 11-05-24 BIRAD 2 She is seen in conjunction with her Zulema 5-year model risk 2.9% NCI lifetime risk 8.7% discussed chemoprophylaxis and declined caffiene: diet pepsi 1 or 2 a day nicotine: 2 PPD for 30 years stopped in 2007 BCP: used for about 8 years, stopped when hshe had a blood clot in 1077 hormones: none Family History: none Hormonal History: menarche: 13 , breast fed: no, age at first : 25 menopause: 44 Surgical History: left breast biopsy twice partial coloectomy polyp pre cancer gallbaldder 2 skin cancers on nose removed hiatal hernia tubaligation Medical History: Biploar migrane headaches Social History: nicotine: stopped 2008 used to smoke 2 PPD alcoholL none drugs:none Review of Systems - Constitutional Denies fever, Denies weight loss - EENT Eyes: bilateral blurred vision Ears: bilateral: decreased hearing, deny: tinnitus Ears, nose, mouth and throat: Denies dysphagia - Breasts bilateral: as per HPI - Cardiovascular Denies chest pain, Denies shortness of breath - Respiratory Respiratory Comment(s): COPD - Gastrointestinal Reports as per HPI, Reports diarrhea - Genitourinary Genitourinary: Denies dysuria, Denies hematuria Menstruation: Reports postmenopausal - Musculoskeletal Reports as per HPI - Integumentary Denies rash, Denies unusual bruising - Neurological Reports headaches, Denies syncope - Psychiatric Psychiatric Comment(s): Bi-polar Reports as per HPI - Endocrine Endocrine Comment(s): borderline diabetic Reports as per HPI, Reports weight change - Hematologic/Lymphatic Denies easy bleeding, Denies easy bruising - Allergic/Immunologic Reports as per HPI Past Medical History Past Medical History: Coronary Artery Disease (CAD), Cancer, Hypertension, Osteoarthritis (OA), Pulmonary Embolus (PE), Thyroid Disorder Additional Past Medical History / Comment(s): skin cancer History of Any Multi-Drug Resistant Organisms: None Reported Past Surgical History: Bowel Resection, Cholecystectomy, Heart Catheterization, Hernia Repair, Tonsillectomy, Tubal Ligation Additional Past Surgical History / Comment(s): skin cancer surgery. PRE- CANCEROUS COLON POLYPS. Past Anesthesia/Blood Transfusion Reactions: No Reported Reaction Past Psychological History: Anxiety, Bipolar, Depression Smoking Status: Former smoker Past Alcohol Use History: None Reported Additional Past Alcohol Use History / Comment(s): Quit smoking 2007, 2PPD Past Drug Use History: None Reported Additional Drug Use History / Comment(s): marijuana use many years ago Medications and Allergies Home Medications Medication Instructions Recorded Confirmed Type Aspirin 325 mg PO HS 07/28/17 07/06/24 History Cholecalciferol (Vitamin D3) 2,000 unit PO QAM 07/28/17 07/06/24 History [Vitamin D3] Cholestyramine/Aspartame 1 each PO DIRECTED PRN 07/28/17 07/06/24 History [Cholestyramine Light Packet] Levothyroxine Sodium [Synthroid] 125 mcg PO QAM 07/28/17 07/06/24 History Danielson Carbonate 300 mg PO HS 07/28/17 07/06/24 History NIFEdipine [NIFEdipine ER] 30 mg PO QAM 07/28/17 07/06/24 History Venlafaxine HCl ER [Effexor Xr] 75 mg PO QAM 07/28/17 07/06/24 History buPROPion XL [Wellbutrin XL] 300 mg PO QAM 07/28/17 07/06/24 History Riboflavin (Vitamin B2) [Vitamin 50 mg PO Q7D 11/17/21 07/06/24 History B-2] Aspirin EC [Ecotrin Low Dose] 81 mg PO DAILY 03/07/24 07/06/24 History Atogepant [Qulipta] 60 mg PO DAILY 03/07/24 07/06/24 History Cariprazine HCl [Vraylar] 3 mg PO DAILY 03/07/24 07/06/24 History Ubrogepant [Ubrelvy] 100 mg PO DIRECTED PRN 03/07/24 07/06/24 History lamoTRIgine [LaMICtal ODT] 100 mg PO DAILY 03/07/24 07/06/24 History metFORMIN HCL [Metformin HCl] 500 mg PO BID 03/07/24 07/06/24 History Allergies Allergy/AdvReac Type Severity Reaction Status Date / Time No Known Allergies Allergy Verified 07/06/24 10:16 Objective - Vital Signs Vital signs: Vital Signs Temp 97.7 F 11/09/24 11:18 Pulse 72 11/09/24 11:18 Resp 16 11/09/24 11:18 BP 149/75 11/09/24 11:18 Pulse Ox 98 11/09/24 11:18 FiO2 Intake & Output 11/08/24 11/09/24 11/09/24 18:59 06:59 18:59 Weight 68.039 kg - Constitutional General appearance: Present: cooperative - EENT Eyes: Present: EOMI ENT: Present: hearing grossly normal - Neck Neck: Present: normal ROM - Respiratory Respiratory: bilateral: CTA - Cardiovascular Rhythm: regular Heart sounds: normal: S1, S2 - Integumentary Integumentary: Present: normal turgor - Musculoskeletal Musculoskeletal: Present: gait normal - Psychiatric Psychiatric: Present: A&O x's 3, appropriate affect, intact judgment & insight - Additional findings Additional findings: Breast Examination: Bra: 42D Inspection: grade 2 ptosis bilateral Palpation: Right breast: Multi positional exam fibrocystic changes, no dominant masses or nodules of concern Right axilla: No adenopathy of concern Left breast: Multi positional exam fibrocystic changes, no dominant masses or nodules of concern Left axilla: No adenopathy of concern Fungal infection under right breast, under left breast resolved Assessment and Plan Assessment: Impression: Fibrocystic breast changes Prior left breast nodularity has resolved nothing is noted on physical examination or radiographically to warrant interventional biopsy Prior smoker/has stopped since 2007 Bipolar migraine memory loss slight is seen with her bilateral mammogram 11-05-24 BIRAD 2 Zulema Risk is 2.9%, we have discussed chemoprophylaxis and at this time she is not interested Plan: bilateral mammogram in 2025 follow up Patient to follow-up sooner any questions or concerns continue medication as per dermatology/ketoconazole No. 2 This is discussed with the patient and her . CC: Dr. Ledesma
== END ==
LOC: WWCWWP 10:23
PROVIDERS: ATTEND Surgery
DX: N60.19 Diffuse cystic mastopathy of unspecified breast (principal); F31.9 Bipolar disorder, unspecified; G43.909 Migraine, unspecified, not intractable, without status migrainosus; R41.3 Other amnesia